=== PATIENT | male | born 1980 | race Caucasian/White ===

== ENCOUNTER 2018-03-14 08:08 | Emergency (ER) | payer SELFPAY ==
[~2018-03-14] VITALS: Ht 170.2 cm; Wt 74.8 kg
[2018-03-14 08:09] VITALS: BP 162/105
[2018-03-14 09:07] VITALS: BP 148/86
== END 2018-03-14 09:08 ==
LOC: MED 08:08
DX: S01.511A Laceration without foreign body of lip, initial encounter (principal); V43.52XA Car driver injured in collision with other type car in traffic accident, initial encounter; Y93.I9 Activity, other involving external motion; Y92.488 Other paved roadways as the place of occurrence of the external cause; Y99.8 Other external cause status
CPT/HCPCS: 99283